=== PATIENT | male | born 1950 | race Two or more races ===

== ENCOUNTER 2023-09-22 06:45 | Day surgery (SDC) | payer OTHER ==
[~2023-09-22 06:45] MED LIST: ALDACTONE25 MG; AVALIDE 300-121 EACH PO; CARDURA1 MG; CRESTOR5 MG; NORVASC2.5 M1
[2023-09-22] MEDS ORDERED: OXYC1TAB9 PO (13:05)
== END 2023-09-22 16:30 | disposition home or self-care (01) ==
LOC: CIR.AMB 06:45
PROVIDERS: ATTEND Surgery
DX: K62.1 Rectal polyp (principal); K62.0 Anal polyp; Z20.822 Contact with and (suspected) exposure to COVID-19